=== PATIENT | male | born 1940 | race Caucasian/White ===

== ENCOUNTER 2017-01-15 06:12 | Emergency (ER) | payer MEDICARE, BC, OTHER ==
[~2017-01-15] VITALS: Ht 175.3 cm; Wt 77.1 kg
[~2017-01-15 06:12] MED LIST: ATOR10TA15 PO; BUPR300T PO; IBUP200C PO; MULT1CHW33 PO; OMEGCAP PO; OMEP20TA PO
[2017-01-15 06:19] VITALS: BP 186/112; PULSE 78; RESP 16; TEMP 97.6; O2SAT 98
[2017-01-15 06:27] VITALS: BP 186/112; PULSE 78; RESP 18; TEMP 97.6; O2SAT 98
[2017-01-15] MEDS ORDERED: SODIUM CHLOR 0.9% 1000 ML INJ 1,000 ML IV SCH (06:54)
[2017-01-15] MEDS ORDERED: MORPHINE SULFATE 4 MG/ML INJ IV PUSH ONE (07:00)
[2017-01-15] MEDS ORDERED: ONDANSETRON HCL 4 MG/2 ML VIAL IVP ONE (07:00)
[2017-01-15] MEDS ORDERED: PANTOPRAZOLE SODIUM 40 MG VIAL IVP ONE (07:00)
[2017-01-15] MEDS ORDERED: SODIUM CHLORIDE 0.9% FLUSH 10 ML FLUSH IV FLUSH PRN ×2 (07:00)
[2017-01-15] MEDS ORDERED: FAMOTIDINE 20 MG/2 ML VIAL IV PUSH ONE (07:00)
--- NOTE | 2017-01-15 07:03 | PD ---
HPI Chief Complaint: GI Complaint Time Seen by Provider: 06:54 Travel History International Travel<30 days: No Contact w/Intl Traveler<30days: No Traveled to known affect area: No History of Present Illness HPI The patient is a 76-year-old male that complains of mostly upper abdominal pain but also diffuse abdominal pain for the past 2 days. He denies any fever or melanotic or bloody stools. He has been on Cipro and Flagyl for the past week. The pain began at 4 PM yesterday. His never had this pain before. He has nausea without vomiting. PFSH Past Medical History Diminished Hearing: No Reproductive: Yes (ENLARGED PROSTATE) Tetanus Vaccination: Never Vaccinated Influenza Vaccination: No Past Surgical History Neurologic Surgery: Yes (NECK FUSION, LOW BACK SURGERY AND PLATE IN HEAD) Social History Alcohol Use: No Tobacco Use: No Substance Use: No Allergies-Medications (Allergen,Severity, Reaction): Coded Allergies: No Known Allergies (Verified , 01/15/17) Reported Meds & Prescriptions Reported Meds & Active Scripts Active Reported Omeprazole 20 Mg Tab 20 Mg PO EVERY OTHER DAY Multi Adult Gummies (Multiple Vitamins W/ Minerals) 1 Chw Chw 1 Chew PO DAILY Ibuprofen 200 Mg Cap 200 Mg PO Q4H PRN [place]-3 Fish Oil/Vitamin (Fish Oil-Cholecalciferol) 1,000-1,000 Mg Cap 1 Cap PO DAILY Bupropion HCl ER 24 HR (Bupropion HCl) 300 Mg Tab 300 Mg PO DIRECTED Atorvastatin (Atorvastatin Calcium) 10 Mg Tab 10 Mg PO EVERY OTHER DAY Review of Systems Except as stated in HPI: all other systems reviewed are Neg Physical Exam Narrative GENERAL: The patient is alert, oriented 3 in moderate to severe distress with his diffuse abdominal pain. His vital signs show blood pressure 186/112 but are otherwise normal. SKIN: Focused skin assessment warm/dry. HEAD: Atraumatic. Normocephalic. EYES: Pupils equal and round. No scleral icterus. No injection or drainage. ENT: No nasal bleeding or discharge. Mucous membranes pink and moist. NECK: Trachea midline. No JVD. CARDIOVASCULAR: Regular rate and rhythm. No murmur appreciated. RESPIRATORY: No accessory muscle use. Clear to auscultation. Breath sounds equal bilaterally. GASTROINTESTINAL: Abdomen soft, with tenderness in the midline epigastrium and also tenderness diffusely over the entire abdomen. The abdomen appears slightly distended. Hepatic and splenic margins not palpable. MUSCULOSKELETAL: No obvious deformities. No clubbing. No cyanosis. No edema. NEUROLOGICAL: Awake and alert. No obvious cranial nerve deficits. Motor grossly within normal limits. Normal speech. PSYCHIATRIC: Appropriate mood and affect; insight and judgment normal. Rectal: There are several small pieces of hard stool high in the rectum but no definite fecal impaction. The stool is dark brown and guaiac negative. Data Data Last Documented VS Vital Signs Date Time Temp Pulse Resp B/P Pulse Ox O2 Delivery O2 Flow Rate FiO2 01/15/17 06:30 18 01/15/17 06:27 97.6 78 186/112 98 Orders Complete Blood Count With Diff (01/15/17 06:54) Comprehensive Metabolic Panel (01/15/17 06:54) Lipase (01/15/17 06:54) Urinalysis - C+S If Indicated (01/15/17 06:54) Ct Abd/Pel W Iv Contrast(Rout) (01/15/17 06:54) Iv Access Insert/Monitor (01/15/17 06:54) Ecg Monitoring (01/15/17 06:54) Oximetry (01/15/17 06:54) Sodium Chloride 0.9% Flush (Ns Flush) (01/15/17 07:00) Morphine Inj (Morphine Inj) (01/15/17 07:00) Ondansetron Inj (Zofran Inj) (01/15/17 07:00) Pantoprazole Inj (Protonix Inj) (01/15/17 07:00) Sodium Chlor 0.9% 1000 Ml Inj (Ns 1000 M (01/15/17 06:54) Sodium Chloride 0.9% Flush (Ns Flush) (01/15/17 07:00) Famotidine Inj (Pepcid Inj) (01/15/17 07:00) Oral Contrast - Adult (01/15/17 07:01) MDM Medical Decision Making Medical Screen Exam Complete: Yes Emergency Medical Condition: Yes Medical Record Reviewed: Yes Differential Diagnosis Constipation, small bowel obstruction, ulcer pain, pancreatitis, cholecystitis, ischemic bowel, electrolyte disorder, renal insufficiency, UTI Narrative Course Is now 0700 and the patient is transferred to Dr. Prieto. Milo Banuelos MD January 15, 2017 07:03 Milo Banuelos MD January 15, 2017 07:03
[2017-01-15 07:07] LABS: BASOPHIL # 0.1 TH/MM3 (0-0.2); BASOPHIL % 0.9 % (0.0-2.0); EOSINOPHIL # 0.1 TH/MM3 (0-0.4); EOSINOPHIL % 0.7 % (0.0-4.0); HEMATOCRIT 45.3 % (39.0-51.0); LYMPH % 15.7 % (9.0-44.0); LYMPHOCYTE # 1.3 TH/MM3 (1.0-4.8); MEAN CELL VOLUME 88.5 FL (80.0-100.0); MEAN CORPUSCULAR HEMOGLOBIN 29.3 PG (27.0-34.0); MEAN CORPUSCULAR HGB CONC 33.1 % (32.0-36.0); MONO % 7.2 % (0.0-8.0); NEUT % 75.5 % (16.0-70.0); PLATELET COUNT 276 TH/MM3 (150-450); RED BLOOD COUNT 5.12 MIL/MM3 (4.50-5.90); RED CELL DISTRIBUTION WIDTH 13.1 % (11.6-17.2); WHITE BLOOD COUNT 8.1 TH/MM3 (4.0-11.0)
[2017-01-15 07:13] LABS: HEMO FLAGS DIFF FINAL
[2017-01-15 07:14] VITALS: O2SAT 98
[2017-01-15] MEDS ORDERED: DIATRIZOATE MEGLUM/DIATRIZOATE SOD 9 ML CUP ONE (07:16)
[2017-01-15 07:17] LABS: CHLORIDE 93 MEQ/L (98-107); POTASSIUM 3.7 MEQ/L (3.5-5.1); SODIUM (NA) 130 MEQ/L (136-145)
[2017-01-15 07:21] LABS: ANION GAP 12 MEQ/L (5-15); BICARBONATE 25.3 MEQ/L (21.0-32.0); BLOOD UREA NITROGEN 11 MG/DL (7-18)
[2017-01-15 07:24] LABS: ALT (GPT) 46 U/L (12-78); AST (GOT) 33 U/L (15-37); GLOMERULAR FILTRATION RATE 76 ML/MIN (>89)
[2017-01-15 07:26] LABS: TOTAL BILIRUBIN ADULT 0.8 MG/DL (0.2-1.0)
[2017-01-15 07:27] LABS: ALKALINE PHOSPHATASE 80 U/L (45-117)
--- NOTE | 2017-01-15 07:44 | PD ---
Physical Exam Date Seen by Provider: January 15, 2017 Data Data Last Documented VS Vital Signs Date Time Temp Pulse Resp B/P Pulse Ox O2 Delivery O2 Flow Rate FiO2 01/15/17 07:14 98 Nasal Cannula 2 01/15/17 06:30 18 01/15/17 06:27 97.6 78 186/112 Orders Complete Blood Count With Diff (01/15/17 06:54) Comprehensive Metabolic Panel (01/15/17 06:54) Lipase (01/15/17 06:54) Urinalysis - C+S If Indicated (01/15/17 06:54) Ct Abd/Pel W Iv Contrast(Rout) (01/15/17 06:54) Iv Access Insert/Monitor (01/15/17 06:54) Ecg Monitoring (01/15/17 06:54) Oximetry (01/15/17 06:54) Sodium Chloride 0.9% Flush (Ns Flush) (01/15/17 07:00) Morphine Inj (Morphine Inj) (01/15/17 07:00) Ondansetron Inj (Zofran Inj) (01/15/17 07:00) Pantoprazole Inj (Protonix Inj) (01/15/17 07:00) Sodium Chlor 0.9% 1000 Ml Inj (Ns 1000 M (01/15/17 06:54) Sodium Chloride 0.9% Flush (Ns Flush) (01/15/17 07:00) Famotidine Inj (Pepcid Inj) (01/15/17 07:00) Oral Contrast - Adult (01/15/17 07:01) Diatrizoate Liq ( Gastroview Liq) (01/15/17 07:16) Electrocardiogram (01/15/17 ) Sodium Chlor 0.9% 1000 Ml Inj (Ns 1000 M (01/15/17 07:45) Iohexol 350 Inj (Omnipaque 350 Inj) (01/15/17 08:23) Ketorolac Inj (Toradol Inj) (01/15/17 08:45) Labs Laboratory Tests Test 01/15/17 01/15/17 07:00 08:30 White Blood Count 8.1 TH/MM3 Red Blood Count 5.12 MIL/MM3 Hemoglobin 15.0 GM/DL Hematocrit 45.3 % Mean Corpuscular Volume 88.5 FL Mean Corpuscular Hemoglobin 29.3 PG Mean Corpuscular Hemoglobin 33.1 % Concent Red Cell Distribution Width 13.1 % Platelet Count 276 TH/MM3 Mean Platelet Volume 7.4 FL Neutrophils (%) (Auto) 75.5 % Lymphocytes (%) (Auto) 15.7 % Monocytes (%) (Auto) 7.2 % Eosinophils (%) (Auto) 0.7 % Basophils (%) (Auto) 0.9 % Neutrophils # (Auto) 6.0 TH/MM3 Lymphocytes # (Auto) 1.3 TH/MM3 Monocytes # (Auto) 0.6 TH/MM3 Eosinophils # (Auto) 0.1 TH/MM3 Basophils # (Auto) 0.1 TH/MM3 CBC Comment DIFF FINAL Differential Comment Sodium Level 130 MEQ/L Potassium Level 3.7 MEQ/L Chloride Level 93 MEQ/L Carbon Dioxide Level 25.3 MEQ/L Anion Gap 12 MEQ/L Blood Urea Nitrogen 11 MG/DL Creatinine 0.97 MG/DL Estimat Glomerular Filtration 76 ML/MIN Rate Random Glucose 117 MG/DL Calcium Level 9.2 MG/DL Total Bilirubin 0.8 MG/DL Aspartate Amino Transf 33 U/L (AST/SGOT) Alanine Aminotransferase 46 U/L (ALT/SGPT) Alkaline Phosphatase 80 U/L Total Protein 7.4 GM/DL Albumin 3.8 GM/DL Lipase 123 U/L Urine Collection Type CLEAN CATCH Urine Color YELLOW Urine Turbidity CLEAR Urine pH 6.5 Urine Specific [place] 1.009 Urine Protein NEG mg/dL Urine Glucose (UA) NEG mg/dL Urine Ketones NEG mg/dL Urine Occult Blood TRACE Urine Nitrite NEG Urine Bilirubin NEG Urine Leukocyte Esterase NEG Urine RBC 4-9 /hpf Urine WBC 0-2 /hpf Urine Squamous Epithelial 0-5 /hpf Cells Microscopic Urinalysis Comment CULT NOT INDICATED Urine Collection Time 08:30 MDM Medical Record Reviewed: Yes Supervised Visit with LASHELL: No Interpretation(s) EKG at 0739: NSR at 70bpm, qt/qtc: 456/473, no acute st or t wave changes Vital Signs Date Time Temp Pulse Resp B/P Pulse Ox O2 Delivery O2 Flow Rate FiO2 01/15/17 07:14 98 Nasal Cannula 2 01/15/17 06:30 18 01/15/17 06:27 97.6 78 18 186/112 98 01/15/17 06:19 97.6 78 16 186/112 98 Differential Diagnosis Colitis, gastroenteritis, electrolyte abnormality, gastric ulcer, acute cholecystitis, constipation Narrative Course Patient is a 75-year-old male who presents to emergency room with complaints of abdominal pain. Patient reports that he has had abdominal pain since yesterday around 4 PM. Reports that he initially felt nauseous, reports that he then began to have abdominal pain prior to coming to the ER. Patient reports that he has not vomited, reports no fevers or chills. Patient reports that he has had diffuse abdominal pain. Patient's last bowel movement was 2 days ago, patient reports that he does usually have bm's every 3 days. Patient's last colonscopy was [address] Reyna - reports that "everything was perfect and I didn't need another colonscopy ever." Reports that his colon showed "dilated bowels" which is his normal, reports that because his bowels are so big, "he has massive bowel movements and we needed to get a larger toilet." Patient reports that he has been having diffuse abdominal pain, reports that he certainly completed a course of antibiotics for 10 days of Cipro and Septra for a Chronic Pseudomonas sinusitis, reports that he is being treated by Dr. Ramirez with ENT for this. Patient denies any abdominal surgeries in the past. Patient uncomfortable on exam, labs including CT of abdomen and pelvis ordered. Patient was given morphine and IV fluids. Plan to monitor patient. Dr Banuelos did perform rectal exam - reports normal exam with no stool in rectum Vital Signs Date Time Temp Pulse Resp B/P Pulse Ox O2 Delivery O2 Flow Rate FiO2 01/15/17 07:14 98 Nasal Cannula 2 01/15/17 06:30 18 01/15/17 06:27 97.6 78 18 186/112 98 01/15/17 06:19 97.6 78 16 186/112 98 Laboratory Tests Test 01/15/17 07:00 White Blood Count 8.1 TH/MM3 (4.0-11.0) Red Blood Count 5.12 MIL/MM3 (4.50-5.90) Hemoglobin 15.0 GM/DL (13.0-17.0) Hematocrit 45.3 % (39.0-51.0) Mean Corpuscular Volume 88.5 FL (80.0-100.0) Mean Corpuscular Hemoglobin 29.3 PG (27.0-34.0) Mean Corpuscular Hemoglobin 33.1 % Concent (32.0-36.0) Red Cell Distribution Width 13.1 % (11.6-17.2) Platelet Count 276 TH/MM3 (150-450) Mean Platelet Volume 7.4 FL (7.0-11.0) Neutrophils (%) (Auto) 75.5 % (16.0-70.0) Lymphocytes (%) (Auto) 15.7 % (9.0-44.0) Monocytes (%) (Auto) 7.2 % (0.0-8.0) Eosinophils (%) (Auto) 0.7 % (0.0-4.0) Basophils (%) (Auto) 0.9 % (0.0-2.0) Neutrophils # (Auto) 6.0 TH/MM3 (1.8-7.7) Lymphocytes # (Auto) 1.3 TH/MM3 (1.0-4.8) Monocytes # (Auto) 0.6 TH/MM3 (0-0.9) Eosinophils # (Auto) 0.1 TH/MM3 (0-0.4) Basophils # (Auto) 0.1 TH/MM3 (0-0.2) CBC Comment DIFF FINAL Differential Comment Sodium Level 130 MEQ/L (136-145) Potassium Level 3.7 MEQ/L (3.5-5.1) Chloride Level 93 MEQ/L (98-107) Carbon Dioxide Level 25.3 MEQ/L (21.0-32.0) Anion Gap 12 MEQ/L (5-15) Blood Urea Nitrogen 11 MG/DL (7-18) Creatinine 0.97 MG/DL (0.60-1.30) Estimat Glomerular Filtration 76 ML/MIN (>89) Rate Random Glucose 117 MG/DL (74-106) Calcium Level 9.2 MG/DL (8.5-10.1) Total Bilirubin 0.8 MG/DL (0.2-1.0) Aspartate Amino Transf 33 U/L (15-37) (AST/SGOT) Alanine Aminotransferase 46 U/L (12-78) (ALT/SGPT) Alkaline Phosphatase 80 U/L (45-117) Total Protein 7.4 GM/DL (6.4-8.2) Albumin 3.8 GM/DL (3.4-5.0) Lipase 123 U/L (73-393) Vital Signs Date Time Temp Pulse Resp B/P Pulse Ox O2 Delivery O2 Flow Rate FiO2 01/15/17 07:14 98 Nasal Cannula 2 01/15/17 06:30 18 01/15/17 06:27 97.6 78 18 186/112 98 01/15/17 06:19 97.6 78 16 186/112 98 Last Impressions Abdomen/Pelvis CT 01/15/17 0654 Signed Impressions: Service Date/Time: Sunday, January 15, 2017 08:02 - CONCLUSION: 1. Multiple bilateral renal cysts as described above. 2. Small hiatal hernia. 3. Mild hepatic steatosis. Yordan Dillard MD Reviewed all labs and all studies with patient in detail. A copy of patient's CT report was given to him, he understands importance and need to follow-up with independent driver. Signs and symptoms of an acute abdomen was reviewed with patient and his in detail. They will return to ER if he has any of these symptoms Diagnosis Primary Impression: Abdominal pain Qualified Code: R10.84 - Generalized abdominal pain Additional Impressions: Nausea Renal cyst Hyponatremia Patient Instructions: General Instructions Additional Instruction: Please follow-up with independent driver Please stop with your primary care doctor and 1-2 days Please return to the emergency room if symptoms worsen or progress Please return to emergency room as needed Please bring a copy of your radiology report to doctor's office for follow-up Disposition: 01 DISCHARGE HOME Condition: Stable Pualette Quintana DO January 15, 2017 07:44
[2017-01-15] MEDS ORDERED: SODIUM CHLOR 0.9% 1000 ML INJ 1,000 ML IV ONE (07:45)
[2017-01-15] MEDS ORDERED: IOHEXOL 350 MG/ML 10 ML VIAL (for RAD DIAG) IV ONE (08:23)
--- NOTE | 2017-01-15 08:33 | RADHPO ---
EXAM DATE/TIME: 01/15/2017 08:02 [facility] COMPARISON: No previous studies available for comparison. INDICATIONS : Diffuse abdominal pain, upper abdominal pain for 2 days. IV CONTRAST: 85 cc Omnipaque 350 (iohexol) IV ORAL CONTRAST: Partial prescribed oral contrast ingested. RADIATION DOSE: 10.70 CTDIvol (mGy) MEDICAL HISTORY : None SURGICAL HISTORY : Fusion, lumbar. Fusion, cervical. ENCOUNTER: Initial ACUITY: 2 days PAIN SCALE: 5/10 LOCATION: Bilateral abdominal TECHNIQUE: Volumetric scanning of the abdomen and pelvis was performed. Using automated exposure control and ad justment of the mA and/or kV according to patient size, radiation dose was kept as low as reasonably achievable to obtain optimal diagnostic quality images. FINDINGS: LOWER LUNGS: The visualized lower lungs are clear. LIVER: Decreased attenuation without lesion. There is no dilation of the biliary tree. No calcified gallst ones. SPLEEN: Normal size without lesion. PANCREAS: Within normal limits. KIDNEYS: Normal in size and shape. There is no mass, stone or hydronephrosis. Multiple low densities consiste nt with cysts. Largest right renal cyst measures 11.7 cm and largest left renal cyst measures 7.3 cm. ADRENAL GLANDS: Within normal limits. VASCULAR: There is no aortic aneurysm. BOWEL/MESENTERY: The small bowel, and colon demonstrate no acute abnormality. There is no free intraperitoneal air or fluid. Small hiatal hernia. ABDOMINAL WALL: Within normal limits. RETROPERITONEUM: There is no lymphadenopathy. BLADDER: No wall thickening or mass. REPRODUCTIVE: Within normal limits. Prostatic calcifications. INGUINAL: There is no lymphadenopathy or hernia. MUSCULOSKELETAL: Degenerative changes. CONCLUSION: 1. Multiple bilateral renal cysts as described above. 2. Small hiatal hernia. 3. Mild hepatic steatosis. Yordan Dillard MD on January 15, 2017 at 8:21 Board Certified Radiologist. This report was verified electronically.
[2017-01-15 08:38] LABS: BLOOD, URINE TRACE (NEG); GLUCOSE,URINE NEG (NEG); KETONE, URINE NEG (NEG); NITRITE,URINE NEG (NEG); PH, URINE 6.5 (5.0-8.5)
[2017-01-15] MEDS ORDERED: KETOROLAC TROMETHAMINE 30 MG/ML (IVP) VIAL IV PUSH ONE (08:45)
[2017-01-15 08:48] LABS: METHOD OF COLLECTION CLEAN CATCH; URINE COLOR YELLOW (YELLW/STRAW)
[2017-01-15 08:49] LABS: COMMENT (UR) CULT NOT INDICATED; CULTURE IF INDICATED CULT NOT INDICATED; SQUAMOUS EPITHELIAL CELL URINE 0-5 /hpf (0-5); WBC, URINE 0-2 /hpf (0-5)
[2017-01-15 08:57] VITALS: BP 186/88; PULSE 77; RESP 16; O2SAT 98
--- NOTE | 2017-01-15 19:18 | EKG ---
Date Performed: 01/15/2017 Time Performed: 07:39:32 PTAGE: 76 years EKG: Sinus rhythm Borderline ECG NO PREVIOUS TRACING DOCTOR: Darling Mandel Interpretating Date/Time 01/15/2017 19:17:12
== END 2017-01-15 09:10 | disposition home or self-care (01) ==
LOC: PHED 06:12
DX: R10.84 Generalized abdominal pain (principal); N28.1 Cyst of kidney, acquired; E87.1 Hypo-osmolality and hyponatremia
CPT/HCPCS: 74177; 80053; 81001; 83690; 85025; 93005; 96361; 96374; 96375; 99284; C9113; J2270; J2405; J7030; Q9963; Q9967

== ENCOUNTER → 2017-04-01 | Day surgery (SDC) | payer MEDICARE, OTHER, BC ==
[~2017-04-01] MED LIST changes: +BUPIVACAINE HCL PF 0.5% 30 ML VIAL ONE; +PROPOFOL 200 MG/20 ML AMP IV ONE; +TRIAMCINOLONE ACETONIDE 40 MG/ML VIAL I-ARTICULR ONE
--- NOTE | 2017-04-04 22:07 | M6 ---
cc: Enrrique BROOKS DATE 04/01/2017 1940 PROCEDURE Fluoroscopically guided injection bilateral cervical facet joints (bilateral C3-4, C4-5 and C5-6 facet joints). History and physical was completed and signed. Consent was signed. Procedure site was marked. Medications were listed and reconciled. Pain score was recorded. Allergies were noted. Time out was taken. Fluoroscopy time was recorded where applicable. Sedation was administered or directed by Dr. Brooks. The patient was given oxygen. The patient was monitored by a registered nurse. Total procedure time was greater than 15 minutes. IV was started, blood pressure cuff, pulse oximeter and EKG were applied. The patient was placed in the prone position on a Wenceslao table sedated with small amounts of propofol titrated to effect. Vital signs were monitored and remained stable throughout the procedure. The cervical area was prepped with alcohol and 10% Betadine solution and draped with sterile drapes. Fluoroscopy was used to visualize the bilateral cervical facet joints at C3-4, C4-5 and C5-6. Separate sterile 3-1/2-inch 25-gauge spinal needles were advanced into these joints under fluoroscopic guidance. There was negative aspiration for blood or any other type of fluid. At each location, the patient was given 1 mL of Marcaine 0.5% which contained 10 mg of Kenalog. Following the procedure, the patient was taken to the recovery room with stable vital signs neurologically intact. MD GIORGIO Mercado/ /9:29 AM /10:01 PM
== END | disposition home or self-care (01) ==
LOC: PHSDC 07:36
PROVIDERS: ATTEND Pain Medicine Interventional Pain Medicine
DX: M54.2 Cervicalgia (principal)
CPT/HCPCS: 64490; 64491; 64492; 99152; J3301

== ENCOUNTER → 2017-07-01 | Day surgery (SDC) | payer MEDICARE, BC ==
[~2017-07-01] MED LIST changes: -BUPIVACAINE HCL PF 0.5% 30 ML VIAL ONE; +LIDOCAINE HCL 1% PF 30 ML VIAL EPIDURAL ONE; -MULT1CHW33 PO; +SODIUM CHLORIDE 0.9% 10 ML VIAL ONE; -TRIAMCINOLONE ACETONIDE 40 MG/ML VIAL I-ARTICULR ONE; +TRIAMCINOLONE ACETONIDE 40 MG/ML VIAL NERV BLOCK ONE; +methylPREDNISolone ACETATE 40 MG/ML VIAL I-ARTICULR ONE
--- NOTE | 2017-07-02 08:30 | M6 ---
cc: CARLOS BROOKS M.D. DATE 07/01/2017 DATE OF 1940. PROCEDURE Fluoroscopically guided left S1 transforaminal epidural steroid injection. History and physical was completed and signed. Consent was signed. Procedure site was marked. Medications were listed and reconciled. Pain score was recorded. Allergies were noted. Time out was taken. Fluoroscopy time was recorded where applicable. Sedation was administered or directed by Dr. Brooks. The patient was given oxygen. The patient was monitored by a registered nurse. Total procedure time was greater than 15 minutes. PROCEDURE PARISH IV was started, blood pressure cuff, pulse oximeter and EKG were applied. The patient was placed in the prone position on a Wenceslao table, sedated with small amounts of propofol titrated to effect. Vital signs were monitored and remained stable throughout the procedure. The lumbar and sacral area was prepped with alcohol and 10% Betadine solution and draped with sterile drapes. Fluoroscopy was used to visualize the left S1 neural foramen. A 3-1/2-inch, 22-gauge Chiba needle was advanced into the foramen under fluoroscopic guidance. There was negative aspiration for blood or any other type of fluid and the patient was given 6 mL of 0.5% Xylocaine, 20 mg of Depo-Medrol and 40 mg of Kenalog. Following the procedure the patient was taken to the recovery room with stable vital signs neurologically intact. W. MD GIORGIO Sebastian/REUBEN /8:52 AM /8:19 AM
== END | disposition home or self-care (01) ==
LOC: PHSDC 07:33
PROVIDERS: ATTEND Pain Medicine Interventional Pain Medicine
DX: M54.5 Low back pain (principal); M79.662 Pain in left lower leg
CPT/HCPCS: 64483; 99152; J1030; J3301